=== PATIENT | male | born 1930 | race Caucasian/White ===

== ENCOUNTER 2017-11-23 07:55 | Outpatient (CLI) | payer MEDICARE, OTHER ==
[2017-11-23] MEDS ORDERED: Iopamidol 370 76% 100 ML VIAL ONE (09:39)
--- NOTE | 2017-11-23 09:48 | CT ---
CT OF ABDOMEN AND PELVIS PERFORMED WITH AND WITHOUT CONTRAST ENHANCEMENT: History: Prostate cancer. Follow up. Comparison: 11-04-15 FINDINGS: Lung bases show some chronic appearing change. Heart size is markedly enlarged. The liver has a nodular cirrhotic contour and measures 16 cm in length. The spleen measures approxima tely 10 cm. The pancreas and gallbladder regions appear unremarkable. Right and left adrenal glands and right and left kidneys are normal in size and appearance. No renal calculi. No significant periaortic adenopathy. There are small subcentimeter nodes noted, stable. No significant mesenteric adenopathy. CT OF PELVIS PERFORMED WITH AND WITHOUT CONTRAST ENHANCEMENT: There is some sigmoid diverticulosis noted. The prostate is enlarged. There is no significant pelvic lymphadenopathy. Incidental note is made of a right inguinal hernia. There is some minimal extension of bowel into the inguinal canal. Review of osseous structures shows some arthritic changes in the spine and both hips. IMPRESSION: 1. Nodular cirrhotic contour to the liver. 2. Enlarged prostate. 3. Right inguinal hernia. POS: [facility]
--- NOTE | 2017-11-23 14:33 | NM ---
BONE SCAN: Technique: Patient was given 13 mCi Technetium labelled MVP, IV. Whole body skeletal images obtained. Indication: Prostate neoplasm. Comparison: 11-04-15 FINDINGS: Symmetric activity at both shoulders suggests degenerative change. These findings are stable from victor manuel or exam. There is no evidence of metastatic disease. IMPRESSION: Unremarkable bone scan. POS: [facility]
== END 2017-11-23 07:56 | disposition home or self-care (01) ==
LOC: CT 07:55
PROVIDERS: ATTEND Urology
DX: C61 Malignant neoplasm of prostate (principal); K40.90 Unilateral inguinal hernia, without obstruction or gangrene, not specified as recurrent; N40.0 Benign prostatic hyperplasia without lower urinary tract symptoms; K74.60 Unspecified cirrhosis of liver
CPT/HCPCS: 74178; 78306; 82565; A9503